=== PATIENT | male | born 1985 | race Two or more races ===

== ENCOUNTER 2025-02-05 16:22 | Emergency (ER) | payer OTHER ==
[~2025-02-05] VITALS: Ht 177.8 cm; Wt 80.0 kg
--- NOTE | 2025-02-05 17:07 | ED.PDOC ---
Musculoskeletal HPI Comments 39-year-old male working inside the [employer] today was lying on his belly and he pushed a head and felt something on his left ankle. Since then he has has had pain in his ankle and wanted to make sure everything was fine this happened on Thursday afternoon. States has only been able to use it when walking with crutches, has taken some fags-vig-gjffodu anti-inflammatories which has helped a little bit. He states he just wanted to make sure it was not anything more serious. Chief Complaint: Lower Extremity Time Seen by MD: 17:03 Reviewed Notes: Nurses Notes, Medications, Allergies Information Source: Patient Mode of Arrival: CRUTUCHES Location: Left Extremity Location: Ankle Past Medical History PAST MEDICAL HISTORY: Denies Social History Smoker: Non-Smoker Alcohol: Denies ETOH Use Drugs: Denies Drug Use Lives In: Home Musculoskeletal: reports: others (left ankle) Physical Exam General Appearance: No Apparent Distress, Normal, Thin HEENT: Normal ENT Inspection, PERRL/EOMI, Pharynx Normal Neck: Full Range of Motion, Non-Tender, Normal Inspection Respiratory: No Accessory Muscle Use, No Respiratory Distress, Normal Breath Sounds Cardiovascular: Regular Rate/Rhythm Breast Exam: Deferred Gastrointestinal: Non Tender, Soft Genitalia: Deferred Pelvic: Deferred Rectal: Deferred Extremities: Swelling (Left lateral malleolus, good circulation noted), Tender Neurologic: Alert, Normal Mood Cerebellar Function: Normal Reflexes: Normal Skin: Dry, Warm Lymphatic: No Adenopathy Was a procedure done? Was a procedure done?: No Differential Diagnosis EXT Differential Diagnosis: Dislocation X-Ray, Labs, Meds, VS Vital Signs Date Time Temp Pulse Resp B/P (MAP) Pulse Ox O2 Delivery O2 Flow Rate FiO2 02/05/25 16:26 98.0 89 16 141/75 97 98.0 X-Ray, Labs, Meds, VS Comment Patient seen and examined by me. Patient twisted his left ankle on Thursday and since his had pain with walking he has been using crutches and anti- inflammatories. An x-ray was done to rule out fracture. X-ray did not show any fracture. Patient will take the next couple of days off I will give him an Dave wrap he already has crutches. He will also be given anti-inflammatories and instructed to rest elevate his foot as much as possible. Limit activity we will help him heal. ORDERING PHYSICIAN: AARON SUAZO PROCEDURE(s): LANKL - L ANKLE 3 VIEW REASON: injusry at work ORDER NUMBER(s): [id number], ACCESSION NUMBER(s): [id number] CLINICAL INDICATION: injusry at work TECHNIQUE: 4 radiographic views of the left ankle were obtained. Comparison: None FINDINGS/IMPRESSION: Bony structures are intact and normal alignment. Ankle mortise is symmetrical. No fractures or dislocations. No radiopaque foreign bodies. Time of 1ST Reevaluation: 17:24 Reevaluation 1ST: Improved Patient Education/Counseling: Diagnosis, Treatment, Prognosis, Need For Follow Up Family Education/Counseling: No Family Present Departure 1 Departure Time of Disposition: 17:24 Impression: Primary Impression: Left ankle sprain Disposition: 01 HOME / SELF CARE / HOMELESS Condition: Good Additional Instructions: Please elevate your leg as much as possible Use Motrin with food every 6 hours for the next five days Use the Dave wrap and crutches at all times until you step and have no pain Off work for two days e-Prescriptions Ibuprofen Micronized (Ibuprofen) 600 Mg Tab 600 MG PO Q6HPRN PRN for 5 Days, #20 TAB Prov: AARON SUAZO 02/05/25 Discharged With: Self Critical Care Note Critical Care Time?: No Stability Stability form required: No AARON SUAZO Feb 05, 2025 17:07
--- NOTE | 2025-02-05 17:13 | DVH ---
CLINICAL INDICATION: injusry at work TECHNIQUE: 4 radiographic views of the left ankle were obtained. Comparison: None FINDINGS/IMPRESSION: Bony structures are intact and normal alignment. Ankle mortise is symmetrical. No fractures or dislocations. No radiopaque foreign bodies.
[2025-02-05] MEDS ORDERED: IBUP1TAB5 PO (17:28)
[2025-02-05 17:40] VITALS: BP 126/78; PULSE 78; RESP 16; TEMP 98.4; O2SAT 98
== END 2025-02-05 17:43 | disposition home or self-care (01) ==
LOC: ER 16:22
DX: S93.402A Sprain of unspecified ligament of left ankle, initial encounter (principal); X58.XXXA Exposure to other specified factors, initial encounter; Y93.01 Activity, walking, marching and hiking; Y92.89 Other specified places as the place of occurrence of the external cause; Y99.8 Other external cause status
CPT/HCPCS: 73610